=== PATIENT | male | born 1990 | race Caucasian/White ===

== ENCOUNTER 2017-06-04 09:27 | Emergency (ER) | payer OTHER ==
[~2017-06-04] VITALS: Ht 177.8 cm; Wt 99.8 kg
[~2017-06-04 09:27] MED LIST: ALPRAZOLAM0.25 MG PO; IBUPROFEN600 MG PO
== END 2017-06-04 10:28 | disposition home or self-care (01) ==
LOC: ER 09:27
DX: S61.211A Laceration without foreign body of left index finger without damage to nail, initial encounter (principal); W26.0XXA Contact with knife, initial encounter; Y93.89 Activity, other specified; Y92.89 Other specified places as the place of occurrence of the external cause; Y99.8 Other external cause status

== ENCOUNTER 2018-08-21 00:03 | Emergency (ER) | payer OTHER ==
[~2018-08-21] VITALS: Ht 177.8 cm; Wt 101.6 kg
== END 2018-08-21 04:43 | disposition home or self-care (01) ==
LOC: ER 00:03
DX: M94.0 Chondrocostal junction syndrome [Tietze] (principal)